=== PATIENT | male | born 1965 | race Caucasian/White ===

== ENCOUNTER 2022-12-23 19:37 | Emergency (ER) | payer BC, SELFPAY ==
[2022-12-23 19:45] VITALS: BP 162/86; PULSE 63; RESP 16; TEMP 36.8; O2SAT 98; BMI 23.0
--- NOTE | 2022-12-23 20:18 | ED.GENADUL1 ---
HPI - General Adult General Chief complaint: Upper Respiratory Infection Stated complaint: SWOLLEN GLAND Time Seen by Provider: 12/23/22 20:18 Source: patient Mode of arrival: walk-in Limitations: no limitations History of Present Illness HPI narrative: presents complaining of swelling of his left parotid gland. Started this afternoon. Feels the swelling has decreased some as it is not as tight. Neg sore throat or sensation of throat swelling. No headache, fever or nausea. Onset (ago): hour(s) Related Data Home Medications Medication Instructions Recorded Confirmed No Known Home Medications 12/23/22 12/23/22 Allergies Allergy/AdvReac Type Severity Reaction Status Date / Time Penicillins Allergy Unknown Verified 12/23/22 19:50 Review of Systems ROS Status of ROS 10 or more systems reviewed and unremarkable except as noted in history and below [facility] Social History Smoking status: Former smoker Exam Constitutional Vital Signs, click to edit/add: Last Vital Signs Temp 98.3 F 12/23/22 19:45 Pulse 63 12/23/22 19:45 Resp 16 12/23/22 19:45 BP 162/86 H 12/23/22 19:45 Pulse Ox 98 12/23/22 19:45 O2 Del Method Room Air 12/23/22 19:45 Common normals: no apparent distress, average body habitus, oriented x3, no limitations, healthy appearing, alert and well nourished [facility] Face and sinus images: 1. swwelling. ? enlarged gland Throat: posterior oropharynx normal Eye Common normals: PERRL, EOMs intact bilaterally and conjunctivae normal Respiratory Common normals: normal respiratory effort, no retractions and no use of accessory muscles Cardio Common normals: regular rate, regular rhythm, S1 normal heart sound and S2 normal heart sound GI Common normals: Normal to inspection, nondistended, normoactive bowel sounds present, soft to palpation and non-tender Extremity Common normals: normal to inspection and full ROM Neuro Common normals: oriented x3, CN's II-XII intact bilaterally, moves all extremities and no focal motor deficits Psych Appearance: grossly normal Course Vital Signs Vital signs: Vital Signs Temperature 98.3 F 12/23/22 19:45 Pulse Rate 63 12/23/22 19:45 Respiratory Rate 16 12/23/22 19:45 Blood Pressure 162/86 H 12/23/22 19:45 Pulse Oximetry 98 10/21/23 19:45 Oxygen Delivery Method Room Air 12/23/22 19:45 Temperature 98.3 F 12/23/22 19:45 Pulse Rate 63 12/23/22 19:45 Respiratory Rate 16 12/23/22 19:45 Blood Pressure 162/86 H 12/23/22 19:45 Pulse Oximetry 98 12/23/22 19:45 Oxygen Delivery Method Room Air 12/23/22 19:45 Medical Decision Making MDM Narrative Medical decision making narrative: presents with acute onset of enlarged painful parotid gland. Mild tenderness . No fever. Admits by the time he arrived here it was decreasing in size as it did not feel as tense. CT with findings of acute parotiditis. patient treated with IV clindamycin and discharged with a prescription for clindamycin. Advised to follow up with his doctor next week for recheck Lab Data Labs: Lab Results 12/23/22 Range/Units 20:35 WBC 11.8 H (4.0-11.0) 10^3/uL RBC 4.89 (4.70-6.10) 10^6/uL Hgb 14.5 (14.0-18.0) g/dL Hct 43.1 (42.0-54.0) % MCV 88.1 (80.0-94.0) fL MCH 29.7 (25.9-34.0) pg MCHC 33.6 (29.9-35.2) g/dL RDW 13.0 (11.0-15.0) % Plt Count 263 (150-450) 10^3/uL MPV 9.7 (9.5-13.5) fL Neut % (Auto) 61.9 (43.0-75.0) % Lymph % (Auto) 27.8 (20.5-60.0) % Bullock % (Auto) 6.6 (1.7-12.0) % Eos % (Auto) 2.6 (0.9-7.0) % Baso % (Auto) 0.8 (0.2-2.0) % Neut # (Auto) 7.3 H (1.4-6.5) 10^3/uL Lymph # (Auto) 3.3 (1.2-3.8) 10^3/uL Bullock # (Auto) 0.8 (0.3-0.8) 10^3/uL Eos # (Auto) 0.3 (0.0-0.7) 10^3/uL Baso # (Auto) 0.1 (0.0-0.1) 10^3/uL Abs Immat Gran (auto) 0.04 H (0.00-0.03) 10^3/uL Imm/Tot Granulo (auto) 0.3 (0.0-0.5) % ESR 14 (<=20) mm/hr Sodium 140 (136-145) mmol/L Potassium 3.7 (3.5-5.1) mmol/L Chloride 106 (98-107) mmol/L Carbon Dioxide 25.4 (21.0-32.0) mmol/L Anion Gap 12.3 BUN 18.0 (7.0-18.0) mg/dL Creatinine 1.34 H (0.70-1.30) mg/dL Est GFR ( Amer) >60 (>=60) Est GFR (Non-Af Amer) 55 L (>=60) BUN/Creatinine Ratio 13.4 Glucose 118 H (74-106) mg/dL Calcium 8.4 L (8.5-10.1) mg/dL C-Reactive Protein <1.0 (<=1.0) mg/dL Imaging Data CT scan - head: Radiologist's impression: cc: PRAKASH KRAUS ~ [facility] [place] [address] Patient Name: KELLY ROD MRN: [id number] date: 1965 Sex: M Assigned Patient Location: Current Patient Location: ER Accession/Order Number: [id number] Exam Date: 12/23/2022 21:00 Report Date: 12/23/2022 21:39 At the request of: JONAH WIGGINS Procedure: CT soft tissue neck w con EXAM: CT facial bones wo con, CT soft tissue neck w con TECHNIQUE: Axial CT images were obtained through the facial bones along with sagittal and coronal reformatted images. Axial CT images were also obtained through the neck soft tissues following intravenous contrast administration. Dose reduction techniques were achieved by using automated exposure control and/or adjustment of mA and/or kV according to patient size and/or use of iterative reconstruction technique. HISTORY: enlarged parotid COMPARISON: None. FINDINGS: Osseous structures: No fracture. No lytic or blastic bone lesion. Orbits: Globes are intact. Extraocular musculature is unremarkable and symmetric. There is no retrobulbar hematoma. Soft tissues: No significant lymphadenopathy. Mild heterogeneous swelling and surrounding inflammation of the left parotid gland. The right parotid gland and submandibular glands are unremarkable and symmetric. Pharyngeal soft tissues are unremarkable. The airways patent. Thyroid gland is unremarkable. Vascular structures appear patent. Sinuses: Clear. CT/CT soft tissue neck w con IMPRESSION: Swelling and inflammation of the left parotid gland suggesting parotiditis. No gross obstructing stone or discrete soft tissue mass. No additional acute findings of the face or soft tissues of the neck. Electronically authenticated by: TANMAY BAZAN Date: 12/23/2022 21:39 Discharge Plan Discharge Chief Complaint: Upper Respiratory Infection Clinical Impression: Parotiditis Patient Disposition: Home, Self-Care Prescriptions / Home Meds: No Action No Known Home Medications Instructions: Sialoadenitis (ED) Additional Instructions: follow up with your doctor next week for recheck Stand Alone Forms: Portal Instructions Referrals: PRAKASH KRAUS [Primary Care Provider] - 1 week
--- NOTE | 2022-12-23 20:21 | CT_ITS ---
The [address] [address] Patient Name: KELLY ROD MRN: [id number] date: 1965 Sex: M Assigned Patient Location: ER Current Patient Location: Accession/Order Number: [id number] Exam Date: 12/23/2022 21:00 Report Date: 12/23/2022 21:39 At the request of: JONAH WIGGINS Procedure: CT facial bones wo con EXAM: CT facial bones wo con, CT soft tissue neck w con TECHNIQUE: Axial CT images were obtained through the facial bones along with sagittal and coronal reformatted images. Axial CT images were also obtained through the neck soft tissues following intravenous contrast administration. Dose reduction techniques were achieved by using automated exposure control and/or adjustment of mA and/or kV according to patient size and/or use of iterative reconstruction technique. HISTORY: enlarged parotid COMPARISON: None. FINDINGS: Osseous structures: No fracture. No lytic or blastic bone lesion. Orbits: Globes are intact. Extraocular musculature is unremarkable and symmetric. There is no retrobulbar hematoma. Soft tissues: No significant lymphadenopathy. Mild heterogeneous swelling and surrounding inflammation of the left parotid gland. The right parotid gland and submandibular glands are unremarkable and symmetric. Pharyngeal soft tissues are unremarkable. The airways patent. Thyroid gland is unremarkable. Vascular structures appear patent. Sinuses: Clear. CT/CT facial bones wo con IMPRESSION: Swelling and inflammation of the left parotid gland suggesting parotiditis. No gross obstructing stone or discrete soft tissue mass. No additional acute findings of the face or soft tissues of the neck. Electronically authenticated by: TANMAY BAZAN Date: 12/23/2022 21:39
--- NOTE | 2022-12-23 20:21 | CT_ITS ---
The [address] [address] Patient Name: KELLY ROD MRN: [id number] date: 1965 Sex: M Assigned Patient Location: ER Current Patient Location: Accession/Order Number: [id number] Exam Date: 12/23/2022 21:00 Report Date: 12/23/2022 21:39 At the request of: JONAH WIGGINS Procedure: CT soft tissue neck w con EXAM: CT facial bones wo con, CT soft tissue neck w con TECHNIQUE: Axial CT images were obtained through the facial bones along with sagittal and coronal reformatted images. Axial CT images were also obtained through the neck soft tissues following intravenous contrast administration. Dose reduction techniques were achieved by using automated exposure control and/or adjustment of mA and/or kV according to patient size and/or use of iterative reconstruction technique. HISTORY: enlarged parotid COMPARISON: None. FINDINGS: Osseous structures: No fracture. No lytic or blastic bone lesion. Orbits: Globes are intact. Extraocular musculature is unremarkable and symmetric. There is no retrobulbar hematoma. Soft tissues: No significant lymphadenopathy. Mild heterogeneous swelling and surrounding inflammation of the left parotid gland. The right parotid gland and submandibular glands are unremarkable and symmetric. Pharyngeal soft tissues are unremarkable. The airways patent. Thyroid gland is unremarkable. Vascular structures appear patent. Sinuses: Clear. CT/CT soft tissue neck w con IMPRESSION: Swelling and inflammation of the left parotid gland suggesting parotiditis. No gross obstructing stone or discrete soft tissue mass. No additional acute findings of the face or soft tissues of the neck. Electronically authenticated by: TANMAY BAZAN Date: 12/23/2022 21:39
[2022-12-23 20:48] LABS: Basophils Absolute Auto 0.1 10^3/uL (0.0-0.1); Basophils Percent Auto 0.8 % (0.2-2.0); Eosinophils Absolute Auto 0.3 10^3/uL (0.0-0.7); Eosinophils Percent Auto 2.6 % (0.9-7.0); Hematocrit 43.1 % (42.0-54.0); Hemoglobin 14.5 g/dL (14.0-18.0); Immature Granulocytes Abs Auto 0.04 10^3/uL (0.00-0.03); Immature Granulocytes Pct Auto 0.3 % (0.0-0.5); Lymphocytes Absolute Auto 3.3 10^3/uL (1.2-3.8); Lymphocytes Percent Auto 27.8 % (20.5-60.0); Mean Corpuscular HGB Conc 33.6 g/dL (29.9-35.2); Mean Corpuscular Hemoglobin 29.7 pg (25.9-34.0); Mean Corpuscular Volume 88.1 fL (80.0-94.0); Mean Platelet Volume 9.7 fL (9.5-13.5); Monocytes Absolute Auto 0.8 10^3/uL (0.3-0.8); Monocytes Percent Auto 6.6 % (1.7-12.0); Neutrophils Absolute Auto 7.3 10^3/uL (1.4-6.5); Neutrophils Percent Auto 61.9 % (43.0-75.0); Platelet Count 263 10^3/uL (150-450); Red Blood Count 4.89 10^6/uL (4.70-6.10); White Blood Count 11.8 10^3/uL (4.0-11.0)
[2022-12-23 20:54] LABS: Erythrocyte Sedimentation Rate 14 mm/hr (<=20)
[2022-12-23 21:00] LABS: Anion Gap 12.3; BUN Creatinine Ratio 13.4; Calcium 8.4 mg/dL (8.5-10.1); Carbon Dioxide 25.4 mmol/L (21.0-32.0); Chloride 106 mmol/L (98-107); Estimated GFR (African America >60 (>=60); Estimated GFR (Non-African Ame 55 (>=60); Glucose 118 mg/dL (74-106); Potassium 3.7 mmol/L (3.5-5.1); Sodium 140 mmol/L (136-145)
[2022-12-23 21:02] LABS: C Reactive Protein <1.0 mg/dL (<=1.0)
[2022-12-23] MEDS: CLINDAMYCIN PHOSPHATE/D5W 900 MG/50 ML PIGGYBACK 100 MG IV (22:02)
[2022-12-23] MEDS: CLINDAMYCIN HCL 150 MG CAPSULE 300 MG PO (23:05)
== END 2022-12-23 23:12 | disposition home or self-care (01) ==
PROVIDERS: Emergency Provider Internal Medicine; PCP Family Medicine
DX: K11.20 Sialoadenitis, unspecified (principal); Z87.891 Personal history of nicotine dependence
CPT/HCPCS: 36415; 70486; 70491; 80048; 85025; 85652; 86140; 96365; 99285; Q9967